=== PATIENT | female | born 1975 | race Caucasian/White ===

== ENCOUNTER 2020-08-23 09:29 | Emergency (ER) | payer BC ==
[~2020-08-23] VITALS: Ht 162.6 cm; Wt 90.9 kg
[~2020-08-23 09:29] MED LIST: DICY10CA88 PO; ESCI10TA45 PO
[2020-08-23 09:39] VITALS: BP 171/112
== END 2020-08-23 11:06 | disposition left against medical advice (07) ==
LOC: ER 09:32
DX: R51.9 Headache, unspecified (principal); K21.9 Gastro-esophageal reflux disease without esophagitis; Z79.899 Other long term (current) drug therapy
CPT/HCPCS: 99281